=== PATIENT | female | born 1995 | race African-American/Black ===

== ENCOUNTER 2016-09-10 21:36 | Emergency (ER) | payer OTHER ==
[~2016-09-10] VITALS: Ht 165.1 cm; Wt 54.2 kg
[2016-09-10 21:44] VITALS: TEMP 36.7; Ht 165.1 cm; Wt 54.2 kg
[2016-09-10] MEDS ORDERED: SODIUM CHLORIDE 0.9% 1000ML 1,000 ML IV STA (21:58)
[2016-09-10] MEDS ORDERED: PROCHLORPERAZINE 5 MG/ML 2 ML VIAL IV STA (21:58)
[2016-09-10] MEDS ORDERED: DiphenhydrAMINE HCL 50 MG/ML VIAL IV STA (21:58)
[2016-09-10] MEDS ORDERED: KETOROLAC TROMETHAMINE 30 MG/ML VIAL IV STA (21:58)
--- NOTE | 2016-09-10 22:12 | DIAGNOSTIC IMAGING REPORT ---
CHEST ONE VIEW PORTABLE CLINICAL HISTORY: Atypical chest pain COMPARISON STUDY: No previous studies for comparison. FINDINGS: The cardiac and mediastinal contours are normal. There is no evidence of focal pulmonary consolidation. There is no evidence of failure. No pleural effusions are visualized.[ IMPRESSION: No active disease in the chest. Electronically signed by: Indra Gallagher M.D. 09/10/2016 10:10 PM Dictated Date/Time: 09/10/2016 10:10 PM
[2016-09-10] MEDS ORDERED: FOLI1TAB7 PO (23:05)
[2016-09-10 23:09] LABS: PREG INTERNAL NEGATIVE QC NEG CLEAR BACKGROUND; PREG INTERNAL POSITIVE QC POS CONTROL LINE
[2016-09-10 23:14] LABS: ALKALINE PHOSPHATASE 70 U/L (45-117); ALT/SGPT 17 U/L (12-78); AST/SGOT 38 U/L (15-37); BLOOD UREA NITROGEN 12 mg/dl (7-18); BUN/CREATININE RATIO 16.4 (10-20); CALCIUM 8.6 mg/dl (8.5-10.1); CARBON DIOXIDE 25 mmol/L (21-32); CHLORIDE 105 mmol/L (98-107); CREATININE 0.73 mg/dl (0.60-1.20); GLUCOSE 99 mg/dl (70-99); POTASSIUM 3.7 mmol/L (3.5-5.1); SODIUM 142 mmol/L (136-145)
[2016-09-10 23:27] LABS: HEMATOCRIT 21.2 % (37-47); MEAN CELL VOLUME 90.6 fL (80-100); MEAN CORPUSCULAR HEMOGLOBIN 34.6 pg (25-34); MEAN CORPUSCULAR HGB CONC 38.2 g/dl (32-36); MEAN PLATELET VOLUME 10.2 fL (7.4-10.4); PLATELET COUNT 262 K/uL (130-400); RED BLOOD COUNT 2.34 M/uL (4.2-5.4); WHITE BLOOD COUNT 8.82 K/uL (4.8-10.8)
[2016-09-11 00:05] LABS: BASO ABS # 0.16 K/uL (0-0.2); BASOPHIL % 1.8 %; EOSINOPHIL % 1.8 %; LYMPH ABS # 2.19 K/uL (1.2-3.4); LYMPHOCYTE % 24.8 %; NEUTROPHILS % 59.7 %; POLYCHROMASIA 1+; SICKLE CELLS 1+; TARGET CELLS 1+; TOXIC GRANULATION 2+
[2016-09-11] MEDS ORDERED: OXYCODONE IR HOME PACK PO ONE (01:00)
[2016-09-11] MEDS ORDERED: ONDANSETRON HOME PACK 4MG OD TAB PO ONE (01:00)
[2016-09-11 01:31] VITALS: BP 118/58; PULSE 77; O2SAT 95
--- NOTE | 2016-09-11 01:38 | EMERGENCY ROOM VISIT NOTE ---
History First contact with patient: 21:55 Chief Complaint: CHEST PAIN Stated Complaint: CHEST PAIN, SICKLE CELL DISEASE Nursing Triage Summary: Ambulates to room. Reports has sickle cell. Has had chest pain for several days. History of Present Illness The patient is a 20 year old female who presents to the Emergency Room with complaints of anterior chest pain for the past 3 days, sickle cell and states she normally has this pain when she is in crisis. Patient falls with hematology in [place]. She is a [employer] student. She graduates this october. Patient tried Motrin at home with no relief. She has morphine but does not like to take this. Patient states whenever she has a crisis she always gets chest pain. This is unchanged. She describes it as aching, ranging in severity 5 out of 10 throughout the chest. Nothing makes it better or worse. Patient denies dyspnea, fever, chills, cough, congestion, abdominal pain, vomiting, diarrhea, urinary symptoms, back pain, leg pain or swelling. She is tolerating by mouth fluids and food. Review of Systems See HPI for pertinent positives & negatives. A total of 10 systems reviewed and were otherwise negative. Past Medical/Surgical History Sickle cell disease, anemia Social History Smoking Status: Never Smoker Smokeless Tobacco Use: No Alcohol Use: none Drug Use: none Occupation Status: [employer] student Current/Historical Medications Scheduled Folic Acid (Folvite), 1 MG PO DAILY Allergies Coded Allergies: No Known Allergies (Unverified , 09/10/16) Physical Exam Vital Signs Date Time Temp Pulse Resp B/P Pulse Ox O2 Delivery O2 Flow Rate FiO2 09/11/16 01:31 77 18 118/58 95 Room Air 09/10/16 23:05 96 18 109/70 98 Room Air 09/10/16 22:39 Room Air 09/10/16 22:21 77 09/10/16 22:01 Room Air 09/10/16 21:44 36.7 94 18 121/72 98 Room Air Physical Exam VITALS: Vitals are noted on the nurse's note and reviewed by myself. Vital signs stable. GENERAL: Pleasant female, in no acute distress, nondiaphoretic, well-developed well-nourished. SKIN: The skin was without rashes, erythema, edema, or bruising. There is no tenting of the skin. Capillary reflex less than 2 seconds. HEAD: Normocephalic atraumatic. EARS: External auditory canals clear, tympanic membranes pearly merida without erythema or effusion bilaterally. EYES: Pupils equal round and reactive to light and accommodation. Conjunctivae without injection, sclerae without icterus. Extraocular movements intact. NOSE: Patent, turbinates without inflammation or discharge. MOUTH: Mucous membranes moist. Pharynx without erythema or exudate. Uvula midline. Airway patent. Tongue does not deviate. NECK: Supple without nuchal rigidity. No lymphadenopathy. No thyromegaly. Cervical spine is nontender. No JVD. HEART: Regular rate and rhythm without murmurs gallops or rubs. Anterior chest tender to palpation easily reproducing symptoms LUNGS: Clear to auscultation bilaterally without wheezes, rales or rhonchi. No dullness to percussion. No retractions or accessory muscle use. ABDOMEN: Positive bowel sounds x 4. Normal tympanic percussion. Soft, nontender, without masses or organomegaly. Fitzgerald sign negative. No guarding or rebound tenderness. MUSCULOSKELETAL: No muscle atrophy, erythema, or edema noted. NEURO: Patient was alert and oriented to person place and time. Normal sensation to light and sharp touch. No focal neurological deficits. Medical Decision & Procedures Laboratory Results 09/10/16 22:30 Red Blood Count 2.34, Mean Corpuscular Volume 90.6, Mean Corpuscular Hemoglobin 34.6, Mean Corpuscular Hemoglobin Concent 38.2, Mean Platelet Volume 10.2 09/10/16 22:30 Test 09/10/16 22:30 White Blood Count 8.82 K/uL (4.8-10.8) Red Blood Count 2.34 M/uL (4.2-5.4) Hemoglobin 8.1 g/dL (12.0-16.0) Hematocrit 21.2 % (37-47) Mean Corpuscular Volume 90.6 fL (80-100) Mean Corpuscular Hemoglobin 34.6 pg (25-34) Mean Corpuscular Hemoglobin Concent 38.2 g/dl (32-36) Platelet Count 262 K/uL (130-400) Mean Platelet Volume 10.2 fL (7.4-10.4) RDW Standard Deviation 73.2 fL (36.4-46.3) RDW Coefficient of Variation 22.8 % (11.5-14.5) Neutrophils % (Manual) 59.7 % Lymphocytes % (Manual) 24.8 % Monocytes % (Manual) 11.9 % Eosinophils % (Manual) 1.8 % Basophils % (Manual) 1.8 % Neutrophils # (Manual) 5.27 K/uL (1.4-6.5) Total Absolute Neutrophils 5.27 K/uL (1.4-6.5) Lymphocytes # (Manual) 2.19 K/uL (1.2-3.4) Total Absolute Lymphocytes 2.19 K/uL (1.2-3.4) Monocytes # (Manual) 1.05 K/uL (0.11-0.59) Eosinophils # (Manual) 0.16 K/uL (0-0.5) Basophils # (Manual) 0.16 K/uL (0-0.2) Toxic Granulation 2+ Polychromasia 1+ Sickle Cells 1+ Target Cells 1+ Absolute Reticulocyte Count 0.53 10^6/uL (0.02-0.10) Percent Reticulocyte Count 22.6 % (0.5-2.0) Anion Gap 12.0 mmol/L (3-11) Est Creatinine Clear Calc Drug Dose 104.3 ml/min Estimated GFR () 136.5 Estimated GFR (Non- 117.7 BUN/Creatinine Ratio 16.4 (10-20) Calcium Level 8.6 mg/dl (8.5-10.1) Total Bilirubin 2.6 mg/dl (0.2-1) Direct Bilirubin 0.3 mg/dl (0-0.2) Aspartate Amino Transf (AST/SGOT) 38 U/L (15-37) Alanine Aminotransferase (ALT/SGPT) 17 U/L (12-78) Alkaline Phosphatase 70 U/L (45-117) Troponin I < 0.015 ng/ml (0-0.045) Total Protein 8.6 gm/dl (6.4-8.2) Albumin 4.1 gm/dl (3.4-5.0) Lipase 105 U/L (73-393) Human Chorionic Gonadotropin, Qual NEG (NEG) Medications Administered Medications (Trade) Dose Ordered Sig/Natalie Route Start Time Stop Time Status Last Admin Dose Admin Ketorolac Tromethamine (Toradol Inj) 30 mg NOW STAT IV 09/10/16 21:58 09/10/16 22:00 DC 4/8/17 22:38 30 MG Prochlorperazine Edisylate (Compazine Inj) 10 mg NOW STAT IV 09/10/16 21:58 09/10/16 22:00 DC 09/10/16 22:37 10 MG Diphenhydramine HCl 25 mg 25 mg NOW STAT IV 09/10/16 21:58 09/10/16 22:00 DC 09/10/16 22:37 25 MG Sodium Chloride (Nss 1000ml) 1,000 ml @ 999 mls/hr Q1H1M STAT IV 09/10/16 21:58 09/10/16 22:58 DC 09/10/16 22:38 999 MLS/HR Ondansetron HCl (ZOFRAN ODT 4MG Home Pack) 1 homepack UD ONCE PO 09/11/16 01:00 09/11/16 01:01 DC 09/11/16 01:24 1 HOMEPACK Oxycodone HCl (Roxicodone Immediate Rel 5MG Home Pack) 1 homepack UD ONCE PO 09/11/16 01:00 09/11/16 01:01 DC 09/11/16 01:23 1 HOMEPACK ED Course Prior records/ancillary studies reviewed. Triage Nursing notes reviewed. The patient's history was concerning for chest pain who was sickle cell disease. Differential diagnosis: Etiologies such as sickle cell crisis, cardiac ischemia, aortic dissection, pulmonary embolism, pneumonia, pneumothorax, musculoskeletal, infections, pericarditis, myocarditis, esophageal rupture, gastrointestinal, as well as others were entertained. Physical examination: As above. ER treatment provided: IV fluids, Toradol, Reglan, Benadryl On reassessment the patient felt better. Diagnostic interpretation by me: The electrocardiogram was negative for pathologic change. Normal sinus, normal intervals, no acute ST-T wave changes. Impression normal sinus rhythm interpreted by myself The labs revealed anemia. Negative troponin Imaging studies: Chest x-ray as above CHEST ONE VIEW PORTABLE CLINICAL HISTORY: Atypical chest pain COMPARISON STUDY: No previous studies for comparison. FINDINGS: The cardiac and mediastinal contours are normal. There is no evidence of focal pulmonary consolidation. There is no evidence of failure. No pleural effusions are visualized.[ IMPRESSION: No active disease in the chest. Electronically signed by: Indra Gallagher M.D. Exam and history seem consistent with sickle cell crisis. Patient felt much better and requested to leave. I felt this was reasonable. Patient states she is always anemic. 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 Patient had a normal EKG and negative troponin. She had multiple episodes of this for her sickle cell crisis and states symptoms are similar. By the evaluation outlined above emergent etiologies such as cardiac ischemia, aortic dissection, pulmonary embolism, pneumonia, pneumothorax, infections, pericarditis, myocarditis, gastrointestinal, as well as others were deemed relatively unlikely. The pt informed about the findings as listed above. All questions were answered and pleased with the treatment. Return instructions were outlined and the patient was discharged in stable condition. Outpatient prescription management: zofran, OxyIR Referral: The patient was referred back to hematology and/or primary care physician for follow-up in 2 to 3 days for a recheck of the current condition. Case reviewed with my attending Medical Decision as above Impression Primary Impression: Sickle cell crisis Departure Information Dispostion Home / Self-Care Condition GOOD Forms HOME CARE DOCUMENTATION FORM, IMPORTANT VISIT INFORMATION Patient Instructions [facility], ED Sickle Cell Crisis Pain Additional Instructions DO NOT drive, drink alcohol, operate machinery, or perform dangerous activities today. You were given medications in the ER that can affect your ability to safely function or operate a vehicle. Zofran 4 m tablet every 6 hours as needed for nausea and vomiting. Oxycodone (OxyIR) 5mg: Take 1-2 pills every four hours for breakthrough pain. Avoid alcohol, operating machinery or dangerous equipment, working on ladders or roofs, DRIVING, or situations where being under the influence may be dangerous. It is recommended to use an [id number] stool softener such as Colace, 100mg twice daily while taking this medication to avoid constipation. Ibuprofen(Motrin, Advil) may be used for fever or pain. Use 600mg every six hours as needed. Take with food. Avoid using more than 2400mg in a 24 hour period. Do not use 2400mg per day for more than three consecutive days without physician direction. Prolonged inappropriate use can lead to stomach upset or ulcers. (AND/OR) Acetaminophen(Tylenol) may be used for fever or pain. Use 1000mg every six hours as needed. Avoid using more than 3000mg in a 24 hour period. Rest and drink plenty of fluids as tolerated. Continue current medications. Avoid strenuous activities and anything that worsens your pain. Resume normal activities once your symptoms resolve. Return to the ER immediately for worsening or persistent chest pain, abdominal pain, vomiting, fevers, chest pains, difficulty breathing, worsening of your condition, or as needed. Follow up with your primary physician in 2-3 days for a recheck of your current condition.
[2016-09-11 06:39] LABS: COMPLETE YES
== END 2016-09-11 01:32 | disposition home or self-care (01) ==
LOC: C.EDB 21:38
DX: D57.00 Hb-SS disease with crisis, unspecified (principal); R07.9 Chest pain, unspecified